=== PATIENT | male | born 1975 | race Caucasian/White ===

== ENCOUNTER 2019-08-30 18:27 | Inpatient (IN) | payer MEDICARE, MEDICAID, SELFPAY ==
[2019-08-30 18:30] VITALS: BMI 54.9
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
[2019-08-30 18:39] VITALS: BP 131/86; PULSE 104; RESP 20; TEMP 36.9; O2SAT 94
[2019-08-30] MEDS: LORazepam 1 mg Tablet PO (18:46)
[2019-08-30 18:59] VITALS: BP 143/65; PULSE 929; RESP 20; O2SAT 98
[2019-08-30 19:00] LABS: Basophils # 0.1 10^3/uL (0.0-0.1); Basophils % 0.8 %; Eosinophils # 0.1 10^3/uL (0.0-0.8); Eosinophils % 1.2 %; Hematocrit 42.5 % (42.0-52.0); Hemoglobin 13.4 g/dL (11.7-16.6); Lymphocytes % 17.4 %; Mean Corpuscular HGB Conc 31.5 g/dL (30.0-36.0); Mean Corpuscular Hemoglobin 27.3 pg (28.0-34.0); Mean Corpuscular Volume 86.7 fL (80-94); Mean Platelet Volume 9.5 fL (7.4-10.4); Monocytes # 0.6 10^3/uL (0.2-0.9); Monocytes % 9.8 %; Neutrophils # 4.2 10^3/uL (1.8-7.7); Neutrophils % 70.6 %; Nucleated Red Blood Cells % 0 %; Platelet Count 303 10^3/cmm (130-400); Red Cell Distribution Width 13.5 % (12.1-15.1); White Blood Count 5.9 10^3/uL (4.0-10.0)
[2019-08-30 19:14] LABS: Alanine Aminotransferase 17 U/L (0-41); Albumin Level 3.8 g/dL (3.5-5.2); Alkaline Phosphatase 100 IU/L (40-130); Aspartate Amino Transferase 20 U/L (0-40); Blood Urea Nitrogen 10 mg/dL (6-20); Calcium 9.2 mg/dL (8.5-10.5); Carbon Dioxide 25 mmol/L (22-29); Chloride 103 mmol/L (98-107); Globulin 3.7 g/dL (1.3-4.6); Glomerular Filtration Rate 81.6 mL/min (90-130); Glucose 116 mg/dL (65-115); Osmolality Calculated 283 mOsm/kg (285-295); Salicylate 0.4 mg/dL (3-10); Sodium 138 mmol/L (136-145); Total Bilirubin 0.2 mg/dL (0.15-1.2); Total Protein 7.5 g/dL (6.6-8.7)
[2019-08-30 19:17] LABS: Acetaminophen < 5.0 ug/mL (10-30); Alcohol Level < 10 mg/dL (0-10)
[2019-08-30 19:48] VITALS: BP 154/72; PULSE 92; RESP 16; O2SAT 97
[2019-08-30 20:22] LABS: Amphetamines Screen Urine Negative (Negative); Barbiturates Screen Urine Negative (Negative); Benzodiazepines Screen Urine Negative (Negative); Cocaine Screen Urine Negative (Negative); Opiate Screen Urine Negative (Negative); PCP Screen Urine Negative (Negative); THC Screen Urine Negative (Negative)
[2019-08-30 21:44] VITALS: BP 141/95; PULSE 89; RESP 19; TEMP 36.9; O2SAT 95
[2019-08-31 06:00] VITALS: BP 150/73; PULSE 73; RESP 19; TEMP 36.6; O2SAT 98
[2019-08-31] MEDS: FUROsemide 40 mg Tablet 60 MG PO (08:43)
[2019-08-31 14:00] VITALS: BP 130/74; PULSE 82; RESP 20; TEMP 36.6; O2SAT 98
[2019-08-31] MEDS: citalopram 20 mg Tablet 10 MG PO (17:22)
[2019-08-31 20:07] VITALS: BP 127/83; PULSE 82; RESP 16; TEMP 36.6; O2SAT 93
[2019-09-01 06:00] VITALS: BP 84/64; PULSE 87; RESP 14; TEMP 36.7; O2SAT 96
[2019-09-01] MEDS: FUROsemide 40 mg Tablet 60 MG PO (08:51)
[2019-09-01] MEDS: citalopram 20 mg Tablet 10 MG PO (08:51)
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
--- NOTE | 2019-09-01 13:23 | PM.NPN ---
Subjective NPU Subjective: Interval history: Patient reports that he had some difficulty sleeping last night and it is unclear whether that is due to the initiation of Celexa or not. Otherwise he is free of impulses to be aggressive or anger. Mental Status Exam MSE Comments: Mental Status Exam: The patient is an obese alert male appearing approximately his stated age. Eye contact is good. Speech is of normal rate and rhythm. Information provided by the patient is internally consistent and consistent with that in the chart. Even so, we have little objective information with which to compare the data that he provides. Appearance: hygiene is fair; no gross neurological deficits., gait is unremarkable; AIMS=0 Speech: Speech is of normal rate and rhythm and easily understood. Thought processes: Thought processes are concrete. Judgment is not adequate for safety without supervision. Associations: intact Psychotic processes: There is no indication of guarding or paranoia. There is no attention to the internal stimuli. Auditory and visual hallucinations are denied. Judgment: Insight is fair. Problem solving skills are not adequate for safety without supervision. Orientation: The patient is oriented to person, place time and situation. Memory: no deficits noted in immediate, intermediate, or remote spheres. Attention: The patient is alert and interpersonally engaged. Language: Verbalizations are coherent. Fund of knowledge: Fund of knowledge is below average. Affect/Mood: Affect is consistent with a euthymic mood. He denied suicidal ideation Affective range strict Psychosis: perception unimpaired except through cognitive distortion and cognitive deficit; reality testing intact. Vitals/I&O/Wt Last Vital Signs Temp 98.0 F 09/01/19 06:00 Pulse 87 09/01/19 06:00 Resp 14 09/01/19 06:00 BP 84/64 09/01/19 06:00 Pulse Ox 96 09/01/19 06:00 Weight last 48 hrs Weight 145.15 kg Data NPU : 08/30/19 18:48 08/30/19 18:48 A&P Additional A&P Information Diagnoses: Adjustment disorder with disturbance of mood and conduct Cognitive deficit Assessment: It is unclear whether this is a pattern of behavior or not. While the patient does not meet criteria for clinical depression at this time, a trial of antidepressant is indicated to assess potential benefit and tolerability. Intent at this time is to work toward discharge back to his retirement. Treatment plan: Due to the psychiatric conditions and treatment listed in the Assessment and Plan - the patient requires continued hospitalization. Will provide a safe and therapeutic environment for patient.. Will continue inpatient treatment to allow for medication adjustment and monitoring. Will continue q15 min safety checks. Hospital day #2: Trial of Celexa 10 mg daily. Patient will participate in all individual and group therapies as part of the adult psychiatric unit protocol. Hospital day #3: This is day #2 of Celexa 10 mg daily. We will make no changes and assess whether his difficulty sleeping last night has something to do with the medication. Social work is progressing with intention to transfer patient back to his original retirement. Monitor patient's mood, sleep, appetite, and behavior closely. Encourage patient to participate in individual and group therapeutic sessions on the amor. Estimated length of stay 5 days The expected benefits and potential side effects of patient's psychiatric medications were discussed with the patient. The patient understands and consents to treatment.CRITERIA FOR DISCHARGE: stable on medications and no longer an imminent risk Involuntary Hold Information 96 Hour Hold: 96 Hour Involuntary Admission: No Attestations NPU Medical Necessity Statement*: Patient will remain in the hospital another 1-2 nights while placement is established. Coding Level of Care Code Acute Double Cut Off Saw Operator for Caprice Delgado
[2019-09-01 14:00] VITALS: BP 118/70; PULSE 80; RESP 20; TEMP 36.4; O2SAT 94
[2019-09-01 20:00] VITALS: BP 143/80; PULSE 81; RESP 15; TEMP 36.4; O2SAT 95
[2019-09-02 06:00] VITALS: BP 142/79; PULSE 92; RESP 15; TEMP 36.4; O2SAT 94
[2019-09-02] MEDS: citalopram 20 mg Tablet 10 MG PO (08:28)
[2019-09-02] MEDS: FUROsemide 40 mg Tablet 60 MG PO (08:28)
--- NOTE | 2019-09-02 10:17 | PC.SOCIAL ---
attempt to provide Important message for medicare with guardian. message left.
[2019-09-02 10:20] VITALS: BP 142/79; PULSE 92; RESP 15; TEMP 36.4; O2SAT 94
--- NOTE | 2019-09-02 10:33 | PC.SOCIAL ---
important message for medicare was provided to guardian when she called back
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
== END 2019-09-02 12:30 | disposition home or self-care (01) | DRG 882 ==
LOC: ER 19:04 → NP 20:01
PROVIDERS: Admitting Provider Psychiatry & Neurology Psychiatry; Emergency Provider Emergency Medicine; Visit Provider Psychiatry & Neurology Psychiatry
DX: F43.25 Adjustment disorder with mixed disturbance of emotions and conduct (principal); Z68.43 Body mass index [BMI] 50.0-59.9, adult; E66.9 Obesity, unspecified
CPT/HCPCS: 12345; 80053; 80306; 80307; 85025; 99284

== ENCOUNTER → 2020-02-15 09:35 | Outpatient (BNVA) | payer MEDICARE, MEDICAID, SELFPAY | PROVIDERS: PCP Nurse Practitioner Family; Visit Provider Urology | DX: N47.8 Other disorders of prepuce (principal) | CPT/HCPCS: 81003 ==

== ENCOUNTER → 2020-03-15 17:22 | Outpatient (BNVA) | payer MEDICARE, MEDICAID, SELFPAY | PROVIDERS: PCP Nurse Practitioner Family; Visit Provider Urology | DX: N47.1 Phimosis (principal) | CPT/HCPCS: 88305 ==

== ENCOUNTER → 2020-04-27 08:59 | Outpatient (BNVA) | payer MEDICARE, MEDICAID, SELFPAY | PROVIDERS: PCP Nurse Practitioner Family; Visit Provider Urology | DX: N47.1 Phimosis (principal) | CPT/HCPCS: 81003 ==

== ENCOUNTER → 2021-06-07 13:09 | Outpatient (BNVA) | payer MEDICARE, MEDICAID, SELFPAY | PROVIDERS: PCP Nurse Practitioner Family; Visit Provider Nurse Practitioner Family | DX: I87.2 Venous insufficiency (chronic) (peripheral) (principal); L97.811 Non-pressure chronic ulcer of other part of right lower leg limited to breakdown of skin; L97.821 Non-pressure chronic ulcer of other part of left lower leg limited to breakdown of skin | CPT/HCPCS: 11042; 99213; 99214 ==

== ENCOUNTER → 2021-06-14 09:49 | Outpatient (BNVA) | payer MEDICARE, MEDICAID, SELFPAY | PROVIDERS: PCP Nurse Practitioner Family; Visit Provider Nurse Practitioner Family | DX: I87.2 Venous insufficiency (chronic) (peripheral) (principal); L97.821 Non-pressure chronic ulcer of other part of left lower leg limited to breakdown of skin; Z09 Encounter for follow-up examination after completed treatment for conditions other than malignant neoplasm | CPT/HCPCS: 11042 ==

== ENCOUNTER → 2021-06-21 09:42 | Outpatient (BNVA) | payer MEDICARE, MEDICAID, SELFPAY | PROVIDERS: PCP Nurse Practitioner Family; Visit Provider Thoracic Surgery (Cardiothoracic Vascular Surgery) | DX: I87.2 Venous insufficiency (chronic) (peripheral) (principal); L97.821 Non-pressure chronic ulcer of other part of left lower leg limited to breakdown of skin | CPT/HCPCS: 97597 ==

== ENCOUNTER → 2021-06-28 10:39 | Outpatient (BNVA) | payer MEDICARE, MEDICAID, SELFPAY | PROVIDERS: PCP Nurse Practitioner Family; Visit Provider Thoracic Surgery (Cardiothoracic Vascular Surgery) | DX: Z09 Encounter for follow-up examination after completed treatment for conditions other than malignant neoplasm (principal) | CPT/HCPCS: 99212 ==

== ENCOUNTER 2022-02-21 15:53 | Emergency (ER) | payer MEDICARE, MEDICAID, SELFPAY ==
[2022-02-21 16:00] VITALS: BP 157/99; PULSE 85; RESP 16; TEMP 36.8; O2SAT 95; BMI 61.6
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
[2022-02-21 19:10] VITALS: BP 116/69; PULSE 69; RESP 16; O2SAT 95
== END 2022-02-21 19:31 | disposition home or self-care (01) ==
PROVIDERS: Emergency Provider Emergency Medicine; PCP Nurse Practitioner Family
DX: S09.8XXA Other specified injuries of head, initial encounter (principal); S16.1XXA Strain of muscle, fascia and tendon at neck level, initial encounter; S80.02XA Contusion of left knee, initial encounter; S80.01XA Contusion of right knee, initial encounter; F84.0 Autistic disorder; V89.2XXA Person injured in unspecified motor-vehicle accident, traffic, initial encounter
CPT/HCPCS: 70450; 72125; 73562; 99284

== ENCOUNTER → 2022-11-20 09:59 | Outpatient (BNVA) | payer MEDICARE, MEDICAID, SELFPAY | PROVIDERS: PCP Nurse Practitioner Family; Visit Provider Podiatrist Foot & Ankle Surgery | DX: B35.1 Tinea unguium (principal) | CPT/HCPCS: 99203 ==

== ENCOUNTER → 2022-11-29 13:57 | Outpatient (BNVA) | payer MEDICARE, MEDICAID, SELFPAY | PROVIDERS: PCP Nurse Practitioner Family; Visit Provider Nurse Practitioner Family | DX: Z51.89 Encounter for other specified aftercare (principal) | CPT/HCPCS: 99212 ==

== ENCOUNTER → 2023-07-18 13:42 | Outpatient (BNVA) | payer MEDICARE, MEDICAID, SELFPAY | PROVIDERS: PCP Nurse Practitioner Family; Visit Provider Podiatrist Foot & Ankle Surgery | DX: B35.1 Tinea unguium | CPT/HCPCS: 99213 ==

== ENCOUNTER 2023-07-22 11:46 | Emergency (ER) | payer MEDICARE, MEDICAID, SELFPAY ==
[2023-07-22 11:51] VITALS: BP 137/75; PULSE 98; RESP 16; TEMP 36.3; O2SAT 96
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
== END 2023-07-22 13:28 | disposition home or self-care (01) ==
PROVIDERS: Emergency Provider Physician Assistant; PCP Nurse Practitioner Family
DX: S20.212A Contusion of left front wall of thorax, initial encounter (principal); W01.0XXA Fall on same level from slipping, tripping and stumbling without subsequent striking against object, initial encounter; F84.0 Autistic disorder
CPT/HCPCS: 71101; 99283

== ENCOUNTER → 2024-12-28 09:00 | Outpatient (BNVA) | payer MEDICARE, MEDICAID, SELFPAY | PROVIDERS: PCP Nurse Practitioner Family; Visit Provider Dermatology | DX: L30.4 Erythema intertrigo (principal); I87.2 Venous insufficiency (chronic) (peripheral); D18.01 Hemangioma of skin and subcutaneous tissue; L82.1 Other seborrheic keratosis; B07.8 Other viral warts; L29.89 Other pruritus | CPT/HCPCS: 17110; 99204 ==

== ENCOUNTER → 2025-01-25 09:08 | Outpatient (BNVA) | payer MEDICARE, MEDICAID, SELFPAY | PROVIDERS: PCP Nurse Practitioner Family; Visit Provider Dermatology | DX: L30.4 Erythema intertrigo (principal); B07.8 Other viral warts | CPT/HCPCS: 99213 ==